=== PATIENT | female | born 1940 | race Caucasian/White ===

== ENCOUNTER 2022-06-04 02:20 | Emergency (ER) | payer MEDICARE, SELFPAY ==
--- NOTE | 2022-06-04 | ECG_ITS ---
Test Reason : cp Blood Pressure : / mmHG Vent. Rate : 071 BPM Atrial Rate : 071 BPM P-R Int : 168 ms QRS Dur : 098 ms QT Int : 396 ms P-R-T Axes : 043 -19 014 degrees QTc Int : 430 ms Normal sinus rhythm Moderate voltage criteria for LVH, may be normal variant ( R in aVL , Lando product ) Intra-ventricular conduction delay Abnormal ECG No previous ECGs available Referred By: Generic ED Physician Electronically Signed By:CHET QUINN MD
--- NOTE | ~2022-06-04 | US_ITS ---
EXAMINATION: US RETROPERITONEAL LIMITED (RENAL ONLY) CLINICAL INFORMATION: Possible mass on recent prior CT. COMPARISON: CT scan from earlier the same day. No prior ultrasound. TECHNIQUE: Real-time imaging of the kidneys. FINDINGS: RIGHT KIDNEY: 10.6 x 5.2 x 5.4 cm (SAG x AP x TRV). Two, 1.0 cm less benign right simple renal cysts. The kidney otherwise appears unremarkable in size, contour, and echogenicity. Renal cortical thickness is normal. No calculi or focal parenchymal lesions. No hydronephrosis. LEFT KIDNEY: 11.4 x 5.1 x 5.9 cm (SAG x AP x TRV). A 2.6 x 2.3 x 1.8 cm, exophytic simple cyst likely corresponds with the exophytic 2.6 lesion off the posterior left kidney identified on CT scan from earlier the same day. It therefore likely represented a benign, hyperdense cyst. Two, additional, 2.6 cm or less benign left simple renal cysts are also identified. The kidney otherwise appears unremarkable in size, contour, and echogenicity. Renal cortical thickness is normal. No calculi appreciated. No hydronephrosis. US/US renal BI IMPRESSION: Benign bilateral simple renal cysts for which no further dedicated follow up imaging is indicated. The exophytic 2.6 lesion off the posterior left kidney identified on CT scan from earlier the same day likely represented a benign, hyperdense cyst.
--- NOTE | ~2022-06-04 | CT_ITS ---
EXAMINATION: CT ABDOMEN AND PELVIS WITHOUT CONTRAST CLINICAL INFORMATION: Left upper quadrant pain COMPARISON: None TECHNIQUE: Multidetector volumetric imaging was performed from the superior aspect of the liver through the pubic symphysis. Sagittal and coronal reformatted images were obtained on the technologist's workstation. This CT examination was performed using dose optimization techniques as appropriate, variously including the following: *Automated exposure control *Adjustment of mA and/or kV according to patient size (this includes techniques or standardized protocols for targeted exams where dose is matched to indication/reason for exam; i.e. extremities or head) *Use of iterative reconstruction technique DLP: 601 mGy-cm FINDINGS: LUNG BASES: The visualized lung bases are unremarkable. LIVER, GALLBLADDER, AND BILIARY TREE: The liver is normal in size, shape, and attenuation. Small hypodensity in the left hepatic lobe favors a cyst. No biliary ductal dilatation is present. The gallbladder is unremarkable with no evidence of radiopaque gallstones, gallbladder wall thickening, or obvious pericholecystic inflammatory changes. PANCREAS: Unremarkable. SPLEEN: Unremarkable. ADRENAL GLANDS: Unremarkable. KIDNEYS AND URETERS: No hydronephrosis or obstructing calculus bilaterally. There is an exophytic 2.6 cm lesion off the posterior left kidney measuring 31 Hounsfield units, not cystic by CT criteria. A couple simple left renal cysts are also suspected. Additional tiny nonspecific lesion noted off the posterior right kidney. BLADDER: Unremarkable. GASTROINTESTINAL TRACT: No evidence of bowel obstruction or significant wall thickening. No free fluid or free air is seen. ABDOMINAL WALL: No significant hernia is appreciated. LYMPH NODES: Normal. VASCULAR: Mild atelectatic calcification. PELVIC VISCERA: Unremarkable. OSSEOUS STRUCTURES: Multilevel degenerative disc disease in the lumbar spine along with facet arthropathy. CT/CT abdomen pelvis wo IV con IMPRESSION: 1. No acute findings identified in the abdomen/pelvis. 2. Exophytic left renal lesion measuring 31 Hounsfield units, not cystic by CT criteria. This may represent a hyperdense cyst, though a solid mass cannot be excluded. Further workup with renal ultrasound is recommended.
[2022-06-04 02:49] VITALS: BP 168/83; PULSE 77; RESP 18; TEMP 36.1; O2SAT 98; BMI 28.9
[2022-06-04 03:04] LABS: MANUAL DIFF FLAG NO
[2022-06-04 03:05] LABS: Basophils Absolute Auto 0.1 X10*3/uL (0.0-0.2); Basophils Percent Auto 0.9 % (0-2); Eosinophils Absolute Auto 0.2 X10*3/uL (0.0-0.4); Eosinophils Percent Auto 3.2 % (0-4); Hematocrit 38.9 % (37.0-47.0); Hemoglobin 12.9 g/dl (12.0-16.0); Imm Gran Abs Auto 0.02 X10*3/uL (0.00-0.03); Imm Gran Pct Auto 0.3 % (0.0-0.4); Lymphocytes Absolute Auto 1.6 X10*3/uL (1.2-4.9); Lymphocytes Percent Auto 21.1 % (20-40); Mean Corpuscular HGB Conc 33.2 g/dl (31.0-35.0); Mean Corpuscular Hemoglobin 30.4 pg (27.0-33.0); Mean Corpuscular Volume 91.5 fL (80.0-98.0); Mean Platelet Volume 9.1 fL (9.4-12.3); Monocytes Absolute Auto 0.7 X10*3/uL (0.1-1.2); Monocytes Percent Auto 9.2 % (2-11); Neutrophils Absolute Auto 4.8 x10*3/uL (2.0-8.3); Neutrophils Percent Auto 65.3 % (45-73); Platelet Count 255 X10*3/uL (160-400); Red Blood Count 4.25 X10*6/uL (4.20-5.50); Red Cell Distribution Width 13.2 % (11.0-16.0); White Blood Count 7.4 X10*3/uL (4.8-10.8)
[2022-06-04 03:35] LABS: Alanine Aminotransferase 22 U/L (0-31); Albumin Level 4.1 g/dL (3.5-5.0); Alkaline Phosphatase 140 U/L (39-117); Anion Gap 15 (12-20); Aspartate Amino Transferase 25 U/L (5-31); Bilirubin Direct 0.2 mg/dL (0.0-0.5); Bilirubin Total 0.6 mg/dL (0.0-1.0); Blood Urea Nitrogen 13 mg/dL (9-16); Calcium 10.3 mg/dL (8.4-10.2); Carbon Dioxide 23 mmol/L (22-29); Chloride 104 mmol/L (96-108); Estimated Glomerular Filt Rate > 60; Glucose Random 115 mg/dL (60-115); Lipase 48 U/L (8-78); Potassium 3.9 mmol/L (3.3-5.1); Sodium 138 mmol/L (135-145); Total Protein 6.8 g/dL (6.5-8.0); Troponin-I High Sensitivity < 3.5 ng/L (<3.5-17.0)
--- NOTE | 2022-06-04 05:36 | PC.NURSE ---
Pt complains of abdomen pain radiating up into chest. Another EKG obtained, continues to be normal sinus rhythm reviewed by .
--- NOTE | 2022-06-04 05:56 | ED_ITS ---
HPI - Abdominal Pain General Chief Complaint: Abdominal Pain Stated Complaint: abd pain Time Seen by Provider: 06/04/22 05:46 Source: patient Mode of arrival: ambulatory Limitations: no limitations History of Present Illness HPI narrative: Patient comes to the emergency room complaining of 2 days of left upper quadrant pain. Patient states that she is nauseous but she has not vomited or had any diarrhea. Patient denies chest pain or shortness of breath. No coughing or URI symptoms. Patient denies UTI symptoms as well prove patient states that the pain is mostly consist of a burning sensation radiating towards her back and upper chest. Patient took a diastasis without any relief. Related Data Allergies Allergy/AdvReac Type Severity Reaction Status Date / Time acetaminophen [From Percocet] AdvReac Hypotension Verified 06/04/22 02:53 oxycodone AdvReac Hypotension Verified 06/04/22 02:53 Review of Systems Review of Systems Constitutional : No Weight loss, No Fever, No Chills, No Night Sweats, No Fatigue, No Malaise ENT/Mouth : No Hearing loss, No Ear Pain, No Nasal Congestion, No Sinus Pain, No Hoarseness, No sore throat, No Rhinorrhea, No Swallowing Difficulty Eyes: No Eye Pain, No Swelling, No Redness, No Foreign Body, No Discharge, No Vision Changes Cardiovascular : No Chest Pain, No SOB, No Dyspnea on Exertion, No Orthopnea, No Edema, No Palpitations Respiratory : No Cough, No Sputum, No Wheezing, No Smoke Exposure, No Dyspnea Gastrointestinal : Complaining of Nausea, No Vomiting, No Diarrhea, No Constipation, complaining of abdominal burning sensation in the left upper quadrant radiating towards the back and up to the chest Genitourinary : no irregular bleeding, No Dysuria, No Urinary Frequency, No Hematuria, No Urinary Incontinence, No Urgency, No Flank Pain, No Urinary Flow Changes, No Hesitancy Musculoskeletal : No joint pain, No Myalgias, No Joint Swelling Skin : No Skin Lesions, No rash Neuro : No Weakness, No Numbness, No Paresthesias, No Loss of Consciousness, No Dizziness, No Headache Psych : No Anxiety/Panic, No Depression, No SI/HI/AH/VH, No Social Issues, Heme/Lymph: No Bruising, No Bleeding,No Lymphadenopathy Endocrine : No Polyuria, No Polydipsia, No Temperature Intolerance [facility] Past Medical History Medical History (Updated 06/04/22 @ 06:53 by Laverne Corral MD) GERD (gastroesophageal reflux disease) Kidney stones Osteoarthritis Small bowel obstruction Social History Social History Alcohol intake: never Smoked in Last 30 Days: No Use of substances other than those prescribed or required for medical reasons: No Advance Directives: No Advance Directives Information Provided: No Physical Exam ED Vital Signs: Vital Signs - 24 hr 06/04/22 02:49 06/04/22 06:13 06/04/22 06:49 Temperature 97.0 F 97.8 F Pulse Rate 77 71 Respiratory Rate 18 18 11 L Blood Pressure 168/83 H 142/76 H Pulse Oximetry 98 98 Oxygen Delivery Method Room Air Room Air BMI result Body Mass Index 28.9 Course Course Course Narrative: White blood cell count within normal limits, chemistry within normal limits through CT scan pending. Patient received IV fluids, famotidine, morphine and Zofran. Sign-out given to Dr. [facility] - Abdominal Pain Lab Data Result diagrams: 06/04/22 02:59 06/04/22 02:59 Labs: Lab Results 06/04/22 06/04/22 06/04/22 Range/Units 02:59 02:59 02:59 WBC 7.4 (4.8-10.8) X10*3/uL RBC 4.25 (4.20-5.50) X10*6/uL Hgb 12.9 (12.0-16.0) g/dl Hct 38.9 (37.0-47.0) % MCV 91.5 (80.0-98.0) fL MCH 30.4 (27.0-33.0) pg MCHC 33.2 (31.0-35.0) g/dl RDW 13.2 (11.0-16.0) % Plt Count 255 (160-400) X10*3/uL MPV 9.1 L (9.4-12.3) fL Immature Gran % (Auto) 0.3 (0.0-0.4) % Neut % (Auto) 65.3 (45-73) % Lymph % (Auto) 21.1 (20-40) % [place] % (Auto) 9.2 (2-11) % Eos % (Auto) 3.2 (0-4) % Baso % (Auto) 0.9 (0-2) % Lymph # (Auto) 1.6 (1.2-4.9) X10*3/uL [place] # (Auto) 0.7 (0.1-1.2) X10*3/uL Eos # (Auto) 0.2 (0.0-0.4) X10*3/uL Baso # (Auto) 0.1 (0.0-0.2) X10*3/uL Abs Immat Gran (auto) 0.02 (0.00-0.03) X10*3/uL Absolute Neuts (auto) 4.8 (2.0-8.3) x10*3/uL Absolute Nucleated RBC 0.000 (0.0-0.012) X10*3/uL Nucleated RBC % (auto) 0.0 (0.0-0.2) /100WBC Sodium 138 (135-145) mmol/L Potassium 3.9 (3.3-5.1) mmol/L Chloride 104 (96-108) mmol/L Carbon Dioxide 23 (22-29) mmol/L Anion Gap 15 (12-20) BUN 13 (9-16) mg/dL Creatinine 0.65 (0.5-1.4) mg/dL Estim Creat Clear Calc 64.0 Estimated GFR > 60 Random Glucose 115 (60-115) mg/dL Calcium 10.3 H (8.4-10.2) mg/dL Total Bilirubin 0.6 (0.0-1.0) mg/dL Direct Bilirubin 0.2 (0.0-0.5) mg/dL AST 25 (5-31) U/L ALT 22 (0-31) U/L Alkaline Phosphatase 140 H (39-117) U/L Troponin I High Sens < 3.5 (<3.5-17.0) ng/L Total Protein 6.8 (6.5-8.0) g/dL Albumin 4.1 (3.5-5.0) g/dL Lipase 48 (8-78) U/L Discharge Plan Discharge Clinical Impression: Abdominal pain Patient Disposition: Still a Patient
[2022-06-04 06:13] VITALS: RESP 18
[2022-06-04] MEDS: Morphine Sulfate 2 MG/ML CARTRIDGE IVPUSH (06:13)
[2022-06-04] MEDS: 0.9 % Sodium Chloride 1,000 ML 999 ML IVCONT (06:14)
[2022-06-04] MEDS: ondansetron HCL 4 MG/2 ML VIAL IVPUSH (06:17)
[2022-06-04] MEDS: Famotidine/PF 20 MG/2 ML VIAL IVPUSH (06:19)
[2022-06-04 06:49] VITALS: BP 142/76; PULSE 71; RESP 11; TEMP 36.6; O2SAT 98
[2022-06-04 07:35] LABS: Appearance Urine Clear; Color Urine Yellow; Glucose Urine UA Negative (Negative); Leukocyte Esterase Urine Trace (Negative); Nitrite Urine Negative (Negative); PH 7.5 (5.0-9.0); Specific Gravity - Urine <= 1.005 (1.005-1.025); UMIC TRIGGER UACC YES; Urine Blood Negative (Negative); Urine Ketones Negative (Negative); Urine Protein Negative (Neg-Trace)
[2022-06-04 07:39] LABS: Bacteria Urine None Seen (None Seen); Hyaline Casts Urine 0-2 /LPF (0-2); RBC Urine 0-2 /HPF (0-2); Squamous Epithelial Cell Urine 0-2 /HPF (0-2); WBC Urine 0-5 /HPF (0-5)
[2022-06-04] MEDS: traMADoL HCL 50 MG TABLET PO (09:16)
--- NOTE | 2022-06-04 09:49 | PC.NURSE ---
Bedside ultrasound complete. Pt medicated for persistent left sided abd to back pain
== END 2022-06-04 10:46 | disposition home or self-care (01) ==
PROVIDERS: Emergency Medicine; Emergency Provider Emergency Medicine; PCP Nurse Practitioner Family
DX: R10.12 Left upper quadrant pain (principal)
CPT/HCPCS: 36415; 74176; 76775; 80053; 81001; 82248; 83690; 84484; 85025; 93005; 96374; 96375; 99284; 99285; J2270; J2405

== ENCOUNTER 2022-06-06 09:44 | Emergency (ER) | payer MEDICARE, SELFPAY ==
--- NOTE | ~2022-06-06 | XR_ITS ---
EXAMINATION: CHEST 2 VIEWS. ABDOMEN CLINICAL INFORMATION: Pain. Pain COMPARISON: None TECHNIQUE: 2 views chest. 2 views abdomen FINDINGS: Chest: Lungs grossly clear. Minimal scarring in the apices. No pleural effusions. Heart and pulmonary vessels normal. ABDOMEN: Moderate stool burden but no bowel obstruction or free air. There is degenerative change in the left SI joint. XR/XR chest 2V IMPRESSION: No acute findings.
--- NOTE | ~2022-06-06 | XR_ITS ---
EXAMINATION: CHEST 2 VIEWS. ABDOMEN CLINICAL INFORMATION: Pain. Pain COMPARISON: None TECHNIQUE: 2 views chest. 2 views abdomen FINDINGS: Chest: Lungs grossly clear. Minimal scarring in the apices. No pleural effusions. Heart and pulmonary vessels normal. ABDOMEN: Moderate stool burden but no bowel obstruction or free air. There is degenerative change in the left SI joint. XR/XR abdomen min 2V IMPRESSION: No acute findings.
[2022-06-06 09:46] VITALS: BP 144/76; PULSE 87; RESP 18; TEMP 36.8; O2SAT 99; BMI 28.7
--- NOTE | 2022-06-06 10:10 | ED.ABDPAIN ---
HPI - Abdominal Pain General Chief Complaint: Abdominal Pain Stated Complaint: ABD PAIN Time Seen by Provider: 06/06/22 10:09 Source: patient Mode of arrival: ambulatory Limitations: no limitations History of Present Illness HPI narrative: patient was here a few days ago and had a CT and an ultrasound that was negative. Patients pain gets worse with eating and now it is back. Patient states that she has not had a BM for a few days. MD elicited complaint: abdominal pain Pertinent past history: constipation Onset (ago): week(s) Pain Consistency: intermittent Location: LUQ Severity: moderate Quality: stabbing Radiation: LUQ Migration to: no migration Exacerbating factors: eating Relieving factors: nothing Associated symptoms: nausea Related Data Previous Rx's Medication Instructions Recorded omeprazole magnesium 10 mg oral 20 mg PO DAILY #30 ea 06/04/22 suspension,delayed release (Prilosec) cephalexin 500 mg capsule 500 mg PO Q6H #20 caps 06/06/22 lactulose 20 gram/30 mL oral 20 g (30 mL) PO BID #1,200 mL 06/06/22 solution Allergies Allergy/AdvReac Type Severity Reaction Status Date / Time acetaminophen [From Percocet] AdvReac Hypotension Verified 06/04/22 02:53 oxycodone AdvReac Hypotension Verified 06/04/22 02:53 Review of Systems Constitutional: Reports no additional constitutional complaints Eyes: Reports no additional eye complaints Denies dizziness Cardiovascular: Reports no additional cardiovascular complaints Respiratory: Reports as per HPI Gastrointestinal: Reports no additional gastrointestinal complaints Genitourinary: Reports no additional female genitourinary complaints Musculoskeletal: Reports no additional musculoskeletal complaints Skin/Breast: Denies rash Reports system reviewed and no additional complaints, except as documented, Denies dizziness and Denies Sensory deficit (Neuro) Psychiatric: Denies anxiety [facility] Past Medical History Medical History GERD (gastroesophageal reflux disease) Kidney stones Osteoarthritis Small bowel obstruction Social History Social History Alcohol intake: never Smoked in Last 30 Days: No Use of substances other than those prescribed or required for medical reasons: No Advance Directives: Yes Advance Directives Information Provided: No Advance Directives on File: No Physical Exam ED Vital Signs: Vital Signs - 24 hr 06/06/22 09:46 06/06/22 14:11 Temperature 98.3 F Pulse Rate 87 79 Respiratory Rate 18 14 Blood Pressure 144/76 H 142/77 H Pulse Oximetry 99 99 Oxygen Delivery Method Room Air Room Air BMI result Body Mass Index 28.7 Const Other: intermittent luq pain General: healthy appearing Nutritional Appearance: average body habitus Orientation/consciousness: oriented to person and patient oriented x3 Limitations: no limitations HENMT Head: Yes normal to inspection Ears: external ears normal General nose exam: Normal external nose present Mouth: Normal oral and palatal mucosa present and oropharynx normal Throat: Yes posterior oropharynx normal Eyes General: appearance normal, both eyes and all related structures Neck Neck: Yes normal visual inspection Chest Chest palpation & inspection: normal inspection of the chest Resp Auscultation: clear to auscultation bilaterally Cardio Jugular venous distension: no JVD Rate: regular rate Rhythm: regular rhythm Heart sounds: S1 normal heart sound present and S2 normal heart sound present GI Inspection: Yes normal to inspection Palpation (GI): Soft to palpation, nontender and No hepatosplenomegaly present Auscultation: normal bowel sounds General: Yes no CVA tenderness Back/Spine/Pelvis Back: no CVA tenderness Skin General skin exam: no rashes or lesions noted Neuro General: oriented to person and patient oriented x3 Cranial nerves: Yes CN's II-XII intact bilaterally Motor exam (neuro): 5/5 motor strength present throughout Sensory Exam: No Sensory deficit (Neuro) Extrem General: Yes normal to inspection Psych Appearance: grossly normal Course Reevaluation(s) Reevaluation #1: xray shows constipation, Urine now shows infection will dc on lactulose and keflex Time: 14:39 Medications Administered Discontinued Medications Generic Name Dose Route Start Last Admin Trade Name Freq PRN Reason Stop Dose Admin Ketorolac Tromethamine 15 mg 06/06/22 10:18 06/06/22 10:57 Ketorolac Tromethamine 15 Mg/Ml Vial IVPUSH 06/06/22 10:19 15 mg ONCE ONE Administration Lactulose 30 gm 06/06/22 13:21 06/06/22 14:13 Lactulose 20 Gm/30 Ml Solution PO 06/06/22 13:22 30 gm ONCE ONE Administration Pantoprazole Sodium 40 mg 06/06/22 10:18 06/06/22 10:58 Pantoprazole Sodium 40 Mg/10 Ml Vial IVPUSH 06/06/22 10:19 40 mg ONCE ONE Administration MDM - Abdominal Pain Lab Data Result diagrams: 06/06/22 10:46 06/06/22 10:46 Labs: Lab Results 06/06/22 06/06/22 06/06/22 Range/Units 10:46 10:46 14:23 WBC 6.9 (4.8-10.8) X10*3/uL RBC 4.13 L (4.20-5.50) X10*6/uL Hgb 12.7 (12.0-16.0) g/dl Hct 37.8 (37.0-47.0) % MCV 91.5 (80.0-98.0) fL MCH 30.8 (27.0-33.0) pg MCHC 33.6 (31.0-35.0) g/dl RDW 13.2 (11.0-16.0) % Plt Count 240 (160-400) X10*3/uL MPV 9.1 L (9.4-12.3) fL Immature Gran % (Auto) 0.1 (0.0-0.4) % Neut % (Auto) 66.9 (45-73) % Lymph % (Auto) 20.8 (20-40) % [place] % (Auto) 9.0 (2-11) % Eos % (Auto) 2.5 (0-4) % Baso % (Auto) 0.7 (0-2) % Lymph # (Auto) 1.4 (1.2-4.9) X10*3/uL [place] # (Auto) 0.6 (0.1-1.2) X10*3/uL Eos # (Auto) 0.2 (0.0-0.4) X10*3/uL Baso # (Auto) 0.1 (0.0-0.2) X10*3/uL Abs Immat Gran (auto) 0.01 (0.00-0.03) X10*3/uL Absolute Neuts (auto) 4.6 (2.0-8.3) x10*3/uL Absolute Nucleated RBC 0.000 (0.0-0.012) X10*3/uL Nucleated RBC % (auto) 0.0 (0.0-0.2) /100WBC Sodium 138 (135-145) mmol/L Potassium 4.1 (3.3-5.1) mmol/L Chloride 103 (96-108) mmol/L Carbon Dioxide 24 (22-29) mmol/L Anion Gap 15 (12-20) BUN 14 (9-16) mg/dL Creatinine 0.67 (0.5-1.4) mg/dL Estim Creat Clear Calc 61.9 Estimated GFR > 60 Random Glucose 93 (60-115) mg/dL Calcium 9.2 D (8.4-10.2) mg/dL Total Bilirubin 0.4 (0.0-1.0) mg/dL AST 33 H (5-31) U/L ALT 31 (0-31) U/L Alkaline Phosphatase 128 H (39-117) U/L Total Protein 6.7 (6.5-8.0) g/dL Albumin 4.0 (3.5-5.0) g/dL Urine Color Yellow Urine Appearance Clear Urine pH 6.0 (5.0-9.0) Ur Specific [place] 1.020 (1.005-1.025) Urine Protein Negative (Neg-Trace) mg/dL Urine Glucose (UA) Negative (Negative) mg/dL Urine Ketones 40 (Negative) mg/dL Urine Blood Small (1+) H (Negative) Urine Nitrite Negative (Negative) Ur Leukocyte Esterase Moderate (2+) H (Negative) Urine RBC 6-10 H (0-2) /HPF Urine WBC 6-10 H (0-5) /HPF Ur Squamous Epith Cells 3-5 (0-2) /HPF Urine Bacteria None Seen (None Seen) Hyaline Casts 0-2 (0-2) /LPF Imaging Data Abdominal x-ray: Radiologist's impression: ABDOMEN: Moderate stool burden but no bowel obstruction or free air. There is degenerative change in the left SI joint.? XR/XR abdomen min 2V IMPRESSION: No acute findings.? Chest x-ray: Radiologist's impression: FINDINGS: Chest: Lungs grossly clear. Minimal scarring in the apices. No pleural effusions. Heart and pulmonary vessels normal. ABDOMEN: Moderate stool burden but no bowel obstruction or free air. There is degenerative change in the left SI joint.? XR/XR chest 2V IMPRESSION: No acute findings.? Discharge Plan Discharge Clinical Impression: Constipation, Urinary tract infection Patient Disposition: Home, Self-Care Instructions: Constipation (ED), Urinary Tract Infection in Older Adults (ED) Prescriptions: New lactulose 20 gram/30 mL solution 20 g PO BID Qty: 1200 0RF cephalexin 500 mg capsule 500 mg PO Q6H Qty: 20 0RF No Action Prilosec 10 mg susp,delayed release for recon 20 mg PO DAILY Qty: 30 0RF Referrals: Radha Lee MACHINIST 2ND SHIFT [Primary Care Provider] - 5 days Interventions: ED Discharge Assessment Last Done: 06/06/22 14:59 Discharge Date/Time: 06/06/22 15:14
[2022-06-06 10:49] LABS: MANUAL DIFF FLAG NO
[2022-06-06 10:52] LABS: Basophils Absolute Auto 0.1 X10*3/uL (0.0-0.2); Basophils Percent Auto 0.7 % (0-2); Eosinophils Absolute Auto 0.2 X10*3/uL (0.0-0.4); Eosinophils Percent Auto 2.5 % (0-4); Hematocrit 37.8 % (37.0-47.0); Hemoglobin 12.7 g/dl (12.0-16.0); Imm Gran Abs Auto 0.01 X10*3/uL (0.00-0.03); Imm Gran Pct Auto 0.1 % (0.0-0.4); Lymphocytes Absolute Auto 1.4 X10*3/uL (1.2-4.9); Lymphocytes Percent Auto 20.8 % (20-40); Mean Corpuscular HGB Conc 33.6 g/dl (31.0-35.0); Mean Corpuscular Hemoglobin 30.8 pg (27.0-33.0); Mean Corpuscular Volume 91.5 fL (80.0-98.0); Mean Platelet Volume 9.1 fL (9.4-12.3); Monocytes Absolute Auto 0.6 X10*3/uL (0.1-1.2); Neutrophils Absolute Auto 4.6 x10*3/uL (2.0-8.3); Neutrophils Percent Auto 66.9 % (45-73); Platelet Count 240 X10*3/uL (160-400); Red Blood Count 4.13 X10*6/uL (4.20-5.50); Red Cell Distribution Width 13.2 % (11.0-16.0); White Blood Count 6.9 X10*3/uL (4.8-10.8)
[2022-06-06] MEDS: Ketorolac Tromethamine 15 MG/ML VIAL IVPUSH (10:57)
[2022-06-06] MEDS: Pantoprazole Sodium 40 MG/10 ML VIAL IVPUSH (10:58)
[2022-06-06 11:14] LABS: Alanine Aminotransferase 31 U/L (0-31); Alkaline Phosphatase 128 U/L (39-117); Anion Gap 15 (12-20); Aspartate Amino Transferase 33 U/L (5-31); Bilirubin Total 0.4 mg/dL (0.0-1.0); Blood Urea Nitrogen 14 mg/dL (9-16); Calcium 9.2 mg/dL (8.4-10.2); Carbon Dioxide 24 mmol/L (22-29); Chloride 103 mmol/L (96-108); Creatinine Clr Calc Pharmacy 61.9; Estimated Glomerular Filt Rate > 60; Glucose Random 93 mg/dL (60-115); Potassium 4.1 mmol/L (3.3-5.1); Sodium 138 mmol/L (135-145); Total Protein 6.7 g/dL (6.5-8.0)
[2022-06-06 14:11] VITALS: BP 142/77; PULSE 79; RESP 14; O2SAT 99
[2022-06-06] MEDS: Lactulose 20 GM/30 ML SOLUTION 30 GM PO (14:13)
[2022-06-06 14:29] LABS: Appearance Urine Clear; Color Urine Yellow; Glucose Urine UA Negative (Negative); Leukocyte Esterase Urine Moderate (2+) (Negative); Nitrite Urine Negative (Negative); UMIC TRIGGER UACC YES; Urine Blood Small (1+) (Negative); Urine Ketones 40 mg/dL (Negative); Urine Protein Negative (Neg-Trace)
[2022-06-06 14:32] LABS: Bacteria Urine None Seen (None Seen); Hyaline Casts Urine 0-2 /LPF (0-2); UACC Culture Trigger YES
== END 2022-06-06 15:14 | disposition home or self-care (01) ==
PROVIDERS: Emergency Provider Emergency Medicine; PCP Nurse Practitioner Family
DX: K59.00 Constipation, unspecified (principal); N39.0 Urinary tract infection, site not specified; R10.9 Unspecified abdominal pain
CPT/HCPCS: 36415; 71046; 74019; 80053; 81001; 85025; 87086; 96374; 96375; 99284; J1885

== ENCOUNTER 2025-07-24 09:47 | Emergency (ER) | payer MEDICARE, SELFPAY ==
--- NOTE | ~2025-07-24 | XR_ITS ---
CLINICAL HISTORY: ?fracture - left foot pain 3 view left foot Comparison: None provided Findings: No acute fracture. Chronic/subacute fracture of the 5th metatarsal bone. First metatarsophalangeal joint prominence. No erosions. Hallux valgus. No ankle effusion. No radiopaque foreign body. IMPRESSION: Subacute/chronic fracture of the 5th metacarpal bone. This document has been electronically signed by: Regine Castillo MD on 07/24/2025 12:42:50
--- NOTE | 2025-07-24 10:04 | ED.GENADULT ---
HPI - General Adult General Chief complaint: Extremity Injury, Lower Stated complaint: broken bone over 2 months ago pain yesterday sever Time Seen by Provider: 07/24/25 09:57 Source: patient and family Mode of arrival: ambulatory Limitations: no limitations History of Present Illness ED Provider: DR. Oliva HPI narrative: 85-year-old female came in for evaluation of left foot pain, denies any injury or trauma to the left foot, 2 months ago, reportedly had a on traumatic broken bone in her left foot that was treated with ortho shoes and required no surgery. otherwise patient has no complaints Related Data Previous Rx's ?Medication ?Instructions ?Recorded omeprazole magnesium 10 mg oral 20 mg PO DAILY #30 ea 06/04/22 suspension,delayed release (Prilosec) cephalexin 500 mg capsule 500 mg PO Q6H #20 caps 06/06/22 lactulose 20 gram/30 mL oral 20 g (30 mL) PO BID #1,200 mL 06/06/22 solution Allergies Allergy/AdvReac Type Severity Reaction Status Date / Time acetaminophen (From Percocet) AdvReac Hypotension Verified 07/24/25 10:07 oxycodone AdvReac Hypotension Verified 07/24/25 10:07 Review of Systems Review of Systems: all other systems are reviewed and are negative Constitutional: Reports as per HPI and Reports no additional constitutional complaints Eyes: Reports as per HPI and Reports no additional eye complaints Reports system reviewed and no additional complaints, except as documented Cardiovascular: Reports as per HPI and Reports no additional cardiovascular complaints Respiratory: Reports as per HPI and Reports no additional respiratory complaints Gastrointestinal: Reports as per HPI and Reports no additional gastrointestinal complaints Genitourinary: Reports no additional female genitourinary complaints Musculoskeletal: Reports no additional musculoskeletal complaints Skin/Breast: Reports system reviewed and no additional complaints, except as docu Psychiatric: Reports no additional psychiatric complaints Endocrine: Reports no additional endocrine complaints Hematologic/Lymphatic: Reports no additional hematologic/lymphatic complaints Allergic/Immunologic: Reports no additional allergic/immunologic complaints Reports system reviewed and no additional complaints, except as documented and Reports Abnormal speech present [facility] Past Medical History Medical History Osteoarthritis Small bowel obstruction Kidney stones GERD (gastroesophageal reflux disease) Social History Social History Alcohol intake: never Advance Directives: Yes Advance Directives Information Provided: No Advance Directives on File: No Physical Exam ED Vital Signs: Vital Signs - 24 hr 07/24/25 10:06 Temperature 97.9 F Pulse Rate 85 Respiratory Rate 16 Blood Pressure 122/67 Pulse Oximetry 97 Oxygen Delivery Method Room Air BMI result Body Mass Index 26.6 Vital signs have been reviewed and appear to be correct. Blood pressure elevated. Heart rate normal. Respiratory rate normal. Temperature normal. Oxygen saturation normal. Appearance: Alert. Oriented X3. No acute distress. Head: Normal external exam. Normocephalic. Atraumatic. No Gaming signs noted. No raccoon eyes noted Eyes: PERRLA. EOMI. Conjunctiva and sclera normal. Eyelids normal. ENT: TM's Normal. Pharynx normal. Uvula midline. Moist mucous membranes. No trismus noted. No drooling noted. No muffled voice noted. Neck: Normal inspection. Neck supple. FROM. No adenopathy. Thyroid Normal. No meningeal signs. No neck mass noted. CVS: Normal heart rate and rhythm. Heart sound normal. No murmurs noted. Pulses normal throughout. Respiratory: No respiratory distress. Painless inspiration. Breath sounds normal. No wheezes/rales/rhonchi noted. Chest nontender. No accessory muscle usage noted or decreased air movement noted. Abdomen: Soft and nontender. Bowel sounds normal in all 4 quadrants. No distention noted. No organomegaly noted. No visible injury noted. Back: No CVA tenderness. Full range of motion noted. Skin: Skin warm and dry. Normal skin color. Normal skin turgor. No rashes/lesions/lacerations noted. Extremities: No lower extremity edema. Extremities exhibit normal range of motion. Extremities nontender. Neuro: Oriented X 3. Cranial nerve exam: II-XII are grossly intact No motor deficit. No sensory deficit. Reflexes normal. Course Reevaluation(s) Reevaluation #1: Subacute/chronic fracture of the left 5th metatarsal bone, patient already is wearing an ortho shoe. Patient is okay with Excedrin to control her pain, will refer to our orthopedic clinic. Time: 12:59 Medications Administered Discontinued Medications Generic Name Dose Route Start Last Admin Trade Name Freq PRN Reason Stop Dose Admin Acetaminophen 650 mg 07/24/25 11:02 07/24/25 11:10 Acetaminophen 325 Mg Tablet PO 07/24/25 11:03 650 mg ONCE ONE Administration Medical Decision Making Differential Diagnosis Differential Diagnoses: The differential diagnosis associated with the presentation includes ( Left foot fracture, left foot sprain.) Admission/Observation Consideration of admission/observation: Escalation of care including admission/observation considered Independent Interpretation I performed an independent interpretation of an: Plain X-Ray ( Left foot x-ray: Subacute/chronic left 5th metatarsal bone fracture) Radiology Impression Discussion of test interpretation with radiology: I have reviewed the radiologist's reading. Discharge Plan Discharge Clinical Impression: Closed nondisplaced fracture of fifth left metatarsal bone Patient Disposition: Home, Self-Care Instructions: Foot Fracture in Adults (ED) Additional Instructions: wear the ortho shoe at all times, avoid strenuous activity, avoid running, walking, Or climbing stairs. Prescriptions: No Action Prilosec 10 mg susp,delayed release for recon 20 mg PO DAILY Qty: 30 0RF lactulose 20 gram/30 mL solution 20 g PO BID Qty: 1200 0RF cephalexin 500 mg capsule 500 mg PO Q6H Qty: 20 0RF Referrals: Pardeep Redmond MD [Physician, Orthopedics] Print Language: Mosotho
[2025-07-24 10:06] VITALS: BP 122/67; PULSE 85; RESP 16; TEMP 36.6; O2SAT 97; BMI 26.6
--- OUTSIDE RECORDS SUMMARY | 2025-07-24 10:54 | XMS_ITS | Encounter Summary ---
Author Organization [facility] Address [address] [place] [phone] Phone Care Team Providers Care Case Management Rn Name Role Phone Radha Lee OUTSIDE SALES ACCOUNT EXECUTIVE Primary Care Provider Radha Lee OUTSIDE SALES ACCOUNT EXECUTIVE Primary Care Provider Kitty Liang MD, MPH Primary Care Provider + Encounter Details Date Type Department Care Team (Late st Contact Info) Description 04/01/2020 Procedure Pass [facility], [address] [address] Social History Tobacco Use Types Packs/Day Years Used Date Smoking Tobacco: Never Smokeless Tobacco: Never Alcohol Use Standard Drinks/Week Comments Yes 0 (1 standard drink = 0.6 oz pur e alcohol) 1 glass 5 days a week. Comments Unknown Sex and Gender Information Value Date Recorded Sex Assigned at Female 09/20/2019 4:52 PM EST Legal Sex Female 10:11 PM EDT Gender Identity Female 09/20/2019 4:52 PM EST Sexual Orientation Not on file documented as of this encounter Plan of Treatment Not on file documented as of this encounter Visit Diagnoses Not on filedocumented in this encounter Care Teams Case Management Rn Relationship Specialty Start Date End Date Radha Lee NP [address] [place] [address] [email or web address] PCP - General Family Medicine 02/26/19 02/23/22 Radha Lee NP [address] [place] [address] [email or web address] PCP - General Family Medicine 02/24/22 12/26/23 Kitty Liang MD, MPH [address] [place] [phone] [email or web address] PCP - General Family Medicine 12/27/23 documented as of this encounter Additional Source Comments The information contained in this document represents components of the legal health record. It is not the complete legal health record.[facility]
--- OUTSIDE RECORDS SUMMARY | 2025-07-24 10:54 | XMS_ITS | Clinical Summary ---
Author Organization [facility] Address [address] [address] Phone Care Team Providers Care Chief Of Anesthesiology Name Role Phone Kitty Liang MD, MPH Primary Care Provider + Allergies Active Allergy Reactions Criticality Noted Date Comments Adhesive Tape-Silicones Rash Low 03/20/2019 Paper tape Duloxetine Dizziness 04/12/2019 fatigue Flu Vaccine [id number](6mos Up) Fever 09/10 Triclosan Rash Low 03/20/2019 Opioids-Meperidine And Related Hypotension 03/01 Medications coenzyme Q10 100 mg capsule Take 100 mg by mouth daily. Active metoprolol tartrate (LOPRESSOR) 25 MG tablet Take 25 mg by mouth 2 (two) times a day. Active therapeutic multivitamin tablet Take 1 tablet by mouth daily. Active cholecalciferol (VITAMIN D3) 2,000 unit tablet Take 2,000 Units by mouth daily. Active polyethylene glycol (MIRALAX) 17 gram/dose powder Take 17 g by mouth daily. Active Active Problems Problem Noted Date Diagnosed Date Abnormal chest x-ray 09/10/2024 Overview (09/10/2024): May 2024 with questionable interstitial changes Assessment & Plan (09/10/2024 11:41 AM EST): Patient presented in the fall with acute respiratory illness, likely bronchitis versus pneumonia requiring 2 courses of antibiotics and prednisone. Chest x-ray at that time read with possible interstitial lung disease. A follow-up chest CT after resolution of illness performed which on personal review reveals no evidence of interstitial lung changes including indirect findings such as bronchiolectasis or bronchiectasis. There are stable biapical pleural thickening and right apical nodules without significant change. Report of recent chest CT. no evidence of generalized interstitial lung disease with persistent and unchanged biapical scarring. No further workup necessary. Osteoarthritis 03/25/2022 Cellulitis of right lower extremity 03/25/2022 Assessment & Plan (03/31/2022 2:51 PM EDT): Improving over hospital stay. continue on vancomycin \ Discharge tomorrow? 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 Assessment & Plan (09/24/2020 10:44 AM EST): Continue acupuncture and physical therapy strengthening exercises. Neuropathy 03/11/2020 Assessment & Plan (09/24/2020 10:44 AM EST): Patient will continue Acupuncture for neuropathy pain relief. Myalgia, other site 12/19/2019 Sciatica of right side 12/11/2019 Primary osteoarthritis involving multiple joints 04/12/2019 Assessment & Plan (01/26/2021 2:06 PM EDT): Joint injection Joint injection site was identified. Injection site was swabbed with alcohol. Local anesthesia was obtained with ethyl chloride spray. Right medial midline knee was injected with 20 mg Depo medrol and 1/2 ml of 1% Lidocaine. Hemostasis was obtained with pressure. A bandage was applied. Post injection care was discussed with the patient. Post injection activity was discussed with the patient. [facility] # [id number] [facility] # [id number] Lot # [id number] Exp. 08/21 Patient will continue Acupuncture and Physical therapy stretching, strengthening exercises for OA pain relief. Assessment & Plan (09/24/2020 10:43 AM EST): Continue physical therapy exercises, and acupuncture for joint pain relief. She states therapies have helped decreased symptoms by 80 %. Primary osteoarthritis of left knee 03/20/2019 Polyarthralgia 03/20/2019 Vitamin D deficiency 03/20/2019 Assessment & Plan (05/27/2021 9:04 AM EDT): Hx of Vit D deficiency currently taking OTC supplementation which she was encouraged to continue Last bone density was approximately 2 yrs ago Pt will f/u with her PCP for follow up dexa Assessment & Plan (01/26/2021 2:03 PM EDT): Patient will continue Vitamin D 2000 IU daily. Assessment & Plan (09/24/2020 10:42 AM EST): Patient will continue Vitamin D 2000 IU daily for Vitamin D deficiency. Supraventricular tachycardia 07/31/1986 Assessment & Plan (03/31/2022 2:50 PM EDT): Denies any history of palpitations or rapid heart rate. History of rare SVT, receiving home dose of metoprolol. Encounters Date Type Department Care Team Description 06/30/2025 8:00 AM EST Office Visit [facility] [address] [place] [phone] Kia Mosquera PA-C Closed nondisplaced fracture of fifth metatarsal bone of left foot with routine healing, subsequent encounter (Primary Dx) 06/30/2025 7:50 AM EST - 06/30/2025 11:59 PM EST Hospital Encounter [address] [address] Kia Mosquera PA-C Discharge Disposition: Home or Self Care 05/26/2025 12:40 PM EDT Office Visit [facility] [address] [place] [phone] Ludwig Javier PA-C Closed nondisplaced fracture of fifth metatarsal bone of left foot, initial encounter (Primary Dx) 05/26/2025 Orders Only [facility] [address] [place] [phone] Provider, MD Denny from Last 3 Months Family History Medical History Relation Comments Coronary artery disease Father Nephrolithiasis Maternal Grandmother Osteoarthritis Mother Tuberculosis Mother Relation Status Comments Father Maternal Grandfather Maternal Grandmother Mother Paternal Grandfather Paternal Grandmother Social History Tobacco Use Types Packs/Day Years Used Date Smoking Tobacco: Never Smokeless Tobacco: Never Alcohol Use Standard Drinks/Week Comments Yes 0 (1 standard drink = 0.6 oz pure alcohol) 1 glass of wine 5 days a week with dinner, or gin and tonic in summertime Education Answer Date Recorded Are you interested in more education? Not on vicente e 11/25/2022 Are you concerned about learning? Not on file 11/25/2022 No 11/25/2022 No 11/25/2022 Digital Access Answer Date Recorded No 12/24/2022 No 12/24/2022 Reliable internet access at home? Not on file 12/24/2022 Device with a working camera? Not on file Comments Unknown Sex and Gender Information Value Date Recorded Sex Assigned at Female 09/20/2019 4:52 PM EST Legal Sex Female 10:11 PM EDT Gender Identity Female 09/20/2019 4:52 PM EST Sexual Orientation Not on file Occupation Industry Job Start Date Job End Date Retired RN Not on file Not on file Not on file Last Filed Vital Signs Vital Sign Reading Time Taken Comments Blood Pressure 122/70 09/10/2024 9:50 AM EST Pulse 64 09/10/2024 9:50 AM EST Temperature 36.3 C (97.3 F) 09/10/2024 9:50 AM EST Respiratory Rate 18 06/02/2024 11:41 AM EST Oxygen Saturation 100% 09/10/2024 9:50 AM EST Inhaled Oxygen Concentration - - Weight 72.6 kg (160 lb) 09/10/2024 9:50 AM EST Height 160 cm (5' 3 ) 09/10/2024 9:50 AM EST Body Mass Index 28.34 09/10/2024 9:50 AM EST Plan of Treatment Health Maintenance Due Date Last Done Comments DEPRESSION SCREENING 1954 ZOSTER VACCINES (1 of 2) 01/15/1992 OSTEOPOROSIS SCREENING INITIAL (ONE-TIME) 2007 PNEUMOCOCCAL VACCINES (50+ years) (2 of 2 - PCV) 07/20/2008 07/20/2007 RSV VACCINE (1 - 1-dose 75+ series) 2017 INFLUENZA VACCINE (#1) 2025 06/21/2010, 2006 COVID-19 VACCINE ( season) 2025 Adult Td,Tdap Booster 11/11/2031 11/10/2021 , 11/03/2011, 11/03/2011, Additional history exists HEPATITIS A VACCINES Aged Out No long er eligible based on patient's age to complete this topic HIB VACCINES Aged Out No longer eligi ble based on patient's age to complete this topic MENINGOCOCCAL VACCINES (ACWY) Aged Out No longer eligible based on patient's age to complete this topic MENINGOCOCCAL VACCINES (B) Aged Out N o longer eligible based on patient's age to complete this topic Medical Devices Not on file Procedures Procedure Name Priority Date/Time Associated Diagnosis Comments XR FOOT 3 OR MORE VIEWS (LEFT) Routine 06/30/2025 7:58 AM EST Closed nondisplaced fracture of fifth metatarsal bone of left foot with routine healing, subsequent encounter OUTSIDE XR EXTREMITY LOWER REPORT ONLY Routine 05/26/2025 10:56 AM EDT from Last 3 Months Results * XR FOOT 3 OR MORE VIEWS (LEFT) (06/30/2025 7:58 AM EST) Narrative SYSTEMGENERATED, DOCUMENTATION - 06/30/2025 7:58 AM EST This image report has been auto-finalized and has not been read by a Radiologist. Interpretation has been included in the provider encounter note for this date of service. Kia Mosquera PA-C IMG XR LOWER EXTREMITY F inal Result * Outside XR Extremity Lower Report Only (05/26/2025 10:56 AM EDT) Historical Provider IMValdemar XR LOWER EXTREMITY Fi nal Result from Last 3 Months Insurance [place] [id number] [employer] CROSS MEDEX SUPPLEMENT MEDICARE PART A & B Member Subscriber Plan / Payer (Ef fective 2006-Present) Name:Divine Marin Member ID:[id number] Relation to Subscriber:Self Name:Divine Marin Subscriber ID:[id number] Payer ID:[id number] Group ID:Not on file Type:Medicare Address: [employer] [address] [address] [facility] MEDEX SUPPLEMENT MEDICARE PART A & B Member Subscriber Plan / Payer (Ef fective 2006-Present) Name:NatachaCorneliaman Divine Member ID:[id number] Relation to Subscriber:Self Name:Divine Marin Subscriber ID:[id number] Payer ID:[id number] Group ID:Not on file Type:Medicare Address: [employer] [address] [place] [address] [employer] MEDEX SUPPLEMENT MEDICARE PART A & B [employer] MEDEX SUPPLEMENT MEDICARE PART A & B Member Subscriber Plan / Payer (Ef fective 2006-Present) Name:Divine Marin Member ID:[id number] Relation to Subscriber:Self Name:Divine Marin Subscriber ID:[id number] Payer ID:[id number] Group ID:Not on file Type:Medicare Address: [employer] [address] [place] [phone] [employer] MEDEX SUPPLEMENT MEDICARE PART A & B Member Subscriber Plan / Payer (Ef fective 2006-Present) Name:NatachaColleen Divine Member ID:[id number] Relation to Subscriber:Self Name:Divine Marin Subscriber ID:[id number] Payer ID:[id number] Group ID:Not on file Type:Medicare Address: [employer] [address] [place] [address] [employer] MEDEX SUPPLEMENT MEDICARE PART A & B [facility] MEDEX SUPPLEMENT MEDICARE PART A & B [employer] MEDEX SUPPLEMENT MEDICARE PART A & B [employer] MEDEX SUPPLEMENT Advance Directives For more information, please contact: [phone] (9AM - 5PM [facility], Monday-Monday) * Full Code (Latest Code Status on File) Date Activated Date Inactivated Comments 03/25/2022 3:16 PM Question Answer Comments Code Status Confirmed With: PatientFamily Care Teams Chief Of Anesthesiology Relationship Specialty Start Date End Date Kitty Liang MD, MPH [address] [place] [phone] [email or web address] PCP - General Family Medicine 12/27/23 Additional Source Comments The information contained in this document represents components of the legal health record. It is not the complete legal health record.[facility]
--- OUTSIDE RECORDS SUMMARY | 2025-07-24 10:54 | XMS_ITS | Encounter Summary ---
Author Organization [facility] Address [address] [place] [phone] Phone Care Team Providers Care Space Systems Operations Craftsman Name Role Phone Radha Lee NP Primary Care Provider Kitty Liang MD, MPH Primary Care Provider + Encounter Details Date Type Department Care Team (Late st Contact Info) Description 12/04/2023 Procedure Pass [facility], [address] [phone] Social History Tobacco Use Types Packs/Day Years [...] file Not on file Not on file documented as of this encounter Plan of Treatment Not on file documented as of this encounter Visit Diagnoses Not on filedocumented in this encounter Care Teams Space Systems Operations Craftsman Relationship Specialty Start Date End Date Radha Lee BUSINESS ACCOUNT MANAGER [address] [place] [address] [email or web address] PCP - General Family Medicine 02/24/22 12/26/23 Kitty Liang MD, MPH [address] [place] [address] [email or web address] PCP - General Family Medicine 12/27/23 documented as of this encounter Additional Source Comments The information contained in this document represents components of the legal health record. It is not the complete legal health record.[facility]
--- OUTSIDE RECORDS SUMMARY | 2025-07-24 10:54 | XMS_ITS | Encounter Summary ---
Author Organization [facility] Address [address] [place] [phone] Phone Care Team Providers Care Icicle Machine Operator Name Role Phone Radha Lee BICYCLE SUBASSEMBLER Primary Care Provider Radha Lee BICYCLE SUBASSEMBLER Primary Care Provider Kitty Liang MD, MPH Primary Care Provider + Encounter Details Date Type Department Care Team (Late st Contact Info) Description 10/22/2019 Procedure Pass [facility] Admitting Dept Virtual Department [address] [place], [place] [phone] Social History Tobacco Use Types Packs/Day Years [...] on filedocumented in this encounter Care Teams Icicle Machine Operator Relationship Specialty Start Date End Date Radha Lee NP [address] [place] [address] [email or web address] PCP - General Family Medicine 02/26/19 02/23/22 Radha Lee NP [address] [place] [address] [email or web address] PCP - General Family Medicine 02/24/22 12/26/23 Kitty Liang MD, MPH [address] [place] [phone] [email or web address] PCP - General Family Medicine 12/27/23 documented as of this encounter Additional Source Comments The information contained in this document represents components of the legal health record. It is not the complete legal health record.[facility]
--- OUTSIDE RECORDS SUMMARY | 2025-07-24 10:54 | XMS_ITS | Encounter Summary ---
Author Organization [facility] Address [address] [place] [address] [place] [address] Phone Care Team Providers Care Admissions Evaluator Name Role Phone Radha Lee NP Primary Care Provider Kitty Liang MD, MPH Primary Care Provider + Encounter Details Date Type Department Care Team (Late st Contact Info) Description 12/07/2023 Ancillary Orders [facility], X-Ray - Autumn [address], [place] [id number] Gustabo Kwok, DO [address] [place] [address] [email or web address] Right shoulder pain, unspecified chronicity (Primary Dx) Social History Tobacco Use Types Packs/Day Years [...] on file documented as of this encounter Results * XR SHOULDER 2 VIEWS (RIGHT) (12/07/2023 1:05 PM EDT) Anatomical Region Laterality Modality Shoulder Right Computed Radiogr aphy 12/10/2023 12:1 9 AM EDT Impressions 12/10/2023 12:20 AM EDT No acute fracture or dislocation. Mild glenohumeral joint degenerative change. Partially visualized cervical spine degenerative change. Narrative 12/10/2023 12:20 AM EDT XR SHOULDER 2 OR MORE VIEWS (RIGHT) REQUESTED INDICATION: Pain COMPARISON: None FINDINGS: BONE: Bones demineralized. No acute fracture or dislocation. GLENOHUMERAL JOINT: Mild joint space narrowing. ACROMIOCLAVICULAR JOINT: Joint spaces preserved. OTHER: Partially visualized cervical spine degenerative change. Procedure Note Bethany Caballero MD - 12/10/2023 XR SHOULDER 2 OR MORE VIEWS (RIGHT) REQUESTED INDICATION: Pain COMPARISON: None FINDINGS: BONE: Bones demineralized. No acute fracture or dislocation. GLENOHUMERAL JOINT: Mild joint space narrowing. ACROMIOCLAVICULAR JOINT: Joint spaces preserved. OTHER: Partially visualized cervical spine degenerative change. IMPRESSION: No acute fracture or dislocation. Mild glenohumeral joint degenerative change. Partially visualized cervical spine degenerative change. Gustabo Kwok DO IMG XR UPPER EXTREMITY Final Result documented in this encounter Visit Diagnoses Diagnosis Right shoulder pain, unspecified chronicity- Primary Right shoulder pain, unspecified chronicity documented in this encounter Care Teams Admissions Evaluator Relationship Specialty Start Date End Date Radha Lee, FLOORING MACHINE FEEDER [address] [place] [address] [email or web address] PCP - General Family Medicine 02/24/22 12/26/23 Kitty Liang MD, MPH [address] [place] [address] [email or web address] PCP - General Family Medicine 12/27/23 documented as of this encounter Additional Source Comments The information contained in this document represents components of the legal health record. It is not the complete legal health record.[facility]
--- OUTSIDE RECORDS SUMMARY | 2025-07-24 10:54 | XMS_ITS | Patient Health Record ---
Author Organization [facility] Address [address] [place] [address] Care Team Providers Care Industrial Ecologist Name Role Phone Radha Lee Primary Care Provider Michael Monae Unavailable [phone] Allergies Allergen (clinical drug ingredient) Drug/Non Drug Allergy documented on EMR Reaction Allergy Type Onset Date Status ANTIBACTERAL SOAP, PAPER TAPE (uncoded) Unknown Allergy Active acetaminophen / oxycodone Percocet Unknown Drug Allergy Active Percodan Unknown Drug Allergy Active Reason For Referral No Information Medications Medication SIG (Take, Route, Frequency, Duration) Notes Start Date End Date Status Multivitamin Adults - Tablet as directed Orally Active Vitamin D 50 MCG (1999) Tablet 1 tablet Orally Once a day; Duration: 30 day(s) Active CoQ-10 100 MG Capsule Extended Release 1 capsule with a meal Orally Once a day; Duration: 30 day(s) Active Metoprolol Succinate 25 MG Capsule ER 24 Hour Sprinkle 1 capsule Orally twice a day Active Linzess 145 MCG Capsule TAKE ONE CAPSULE BY MOUTH EVERY DAY AT LEAST 30 MINUTES BEFORE THE FIRST MEAL OF THE DAY ON AN EMPTY STOMACH; Duration: 30 Active MiraLax - Powder as directed Orally Active Immunizations Vaccine Route Administration Date Status Comme nts Influenza Unknown 10/17/2019 Refused Social History Tobacco Use: Social History Observation Description Date Details (start date - stop date) Never Smoker NA - NA Social History Drugs/Alcohol: Social Info Question Answer Notes Alcohol Screen Did you have a drink containing alcohol in the past year? Yes How often did you have a drink containing alcohol in the past year? 4 or more times a week (4 points) How many drinks did you have on a typical day when you were drinking in the past year? 1 or 2 drinks (0 point) How often did you have 6 or more drinks on one occasion in the past year? Never (0 point) Points 4 Interpretation Positive Tobacco Use: Social Info Question Answer Notes Tobacco Use/Smoking Patient is a nonsmoker Additional Details Category Social Info Options Details Miscellaneous: Marital status: Occupation: retired RN Section Notes: Drinks 1 glass of wine with dinner, nonsmoker Drinks 1 glass of wine with dinner, nonsmoker Problems Problem Type SNOMED Code ICD Code Onset Dates Problem Status W/U Status Risk Notes Problem History of adenomatous polyp of colon (334955553) History of adenomatous polyp of colon (Z86.010) Active confirmed Problem Change in bowel habit (20301109) Change in bowel habits (R19.4) Active confirmed Problem Constipation (75174427) Constipation, unspecified constipation type (K59.00) Active confirmed Problem Generalized abdominal pain (897683349) Abdominal pain, generalized (R10.84) Active confirmed Plan Of Treatment Future Test Test Name Order Date COLONOSCOPY 10/17/2019 Insurance Providers Payer Name Payer Address Payer Phone Subscriber Number Group Number Insured Name Patient Relationship to Insured Coverage Start Date Coverage End Date MEDICARE OF [place] [address] [place] [address] [phone] [id number] NIKO OSORIO Self - patient is the insured [employer] CLAIMS [address] [place] [address] [phone] [id number] NIKO OSORIO Self - patient is the insured Medical (General) History Medical History History ICD Code Kidney stones Supraventricular tachycardia Reports neg colonoscopy [address] Babcock, but couldn't reach cecum Denies AL,DM,CVA,Lung disease,renal dise ase sciatica L-3,L-4-L-5 degenerative arthritis Colonoscopy in 09/2019 with omayra still of a single tubular adenoma. She was also noted to have some mild diverticulosis and internal hemorrhoids Surgical History Surgery Date(Month/Year)
--- OUTSIDE RECORDS SUMMARY | 2025-07-24 10:54 | XMS_ITS | Encounter Summary ---
Author Organization [facility] Address [address] [place] [address] Phone Care Team Providers Care Insurance Claim Approver Name Role Phone Radha Lee NP Primary Care Provider Kitty Liang MD, MPH Primary Care Provider + Reason for Referral * MRI/CAT Scan - Closed Specialty Diagnoses / Procedures Referred By Contac t Referred To Contact Radiology Diagnoses Radiculopathy, unspecified spinal region Procedures MRI Lumbar Spine Gustabo Kwok DO Phone: tel: fax: mailto:[email or web address] Referral ID Status Reason Start Date Expiration Date Visits Re quested Visits Authorized [id number] Closed 12/04/2023 12/03/2024 1 1 Encounter Details Date Type Department Care Team (Latest Contact Info) Description 12/04/2023 Transcribe Orders Virtual Department [address] [place] [address] Gustabo Kwok DO [address] [place] [address] [email or web address] Radiculopathy, unspecified spinal region (Primary Dx) Social History Tobacco Use Types [...] documented as of this encounter Results * MRI LUMBAR SPINE (NEURO) WITHOUT CONTRAST (01/07/2024 2:21 PM EDT) Anatomical Region Laterality Modality L-spine Magnetic Resonan ce 01/10/2024 11:1 7 AM EDT Impressions 01/10/2024 4:46 PM EDT When compared to 2019: Slightly progressed multilevel spinal canal stenoses, severe at L5-S1, moderate to severe at L3-4 and L4-5, and mild to moderate at L2-3. Similar multilevel neuroforaminal stenoses, mild to moderate left at L2-3 and L4-5 and mild at L3-4 and L5-S1. L4-5 facet bone marrow and surrounding soft tissue edema, may reflect an axial pain generator. Narrative 01/10/2024 4:46 PM EDT MRI LUMBAR SPINE (NEURO) WITHOUT CONTRAST REQUESTED INDICATION: Outside Radiology Order TECHNIQUE: MRI LUMBAR SPINE (NEURO) WITHOUT CONTRAST COMPARISON: None FINDINGS: ALIGNMENT: 4 mm L3-4 anterolisthesis. 6 mm L4-5 anterolisthesis. MARROW: Transitional lumbosacral anatomy with lumbarization of S1. Heterogeneous marrow signal without marrow replacing lesion. No compression fracture. DISCS: Disc desiccation L2-S1. Endplate marrow edema at L2-3 and L5-S1. CONUS: Normal appearance and terminates at L1-L2. PARASPINAL SOFT TISSUES: Moderate to severe posterior paraspinal muscle atrophy. L4-5 facet bone marrow and surrounding soft tissue edema. FINDINGS BY LEVEL: T12-L1:Facet arthropathy. No spinal canal or neuroforaminal stenosis. L1-2: Diffuse disc bulge, facet arthropathy, and thickening of ligamentum flavum. No spinal canal or neuroforaminal stenosis. L2-3: Diffuse disc bulge eccentric to the left, facet arthropathy, and thickening of ligamentum flavum. Mild to moderate spinal canal stenosis. Mild to moderate left and no right neuroforaminal stenosis. L3-4: Diffuse disc bulge, disc uncovering, facet arthropathy, and thickening of ligamentum flavum. Moderate to severe spinal canal stenosis (5 mm thecal sac AP). Mild neuroforaminal stenosis. L4-5: Diffuse disc bulge eccentric to the left, facet arthropathy, and thickening of ligamentum flavum. Moderate to severe spinal canal stenosis. Mild to moderate left and no right neuroforaminal stenosis. L5-S1: Diffuse disc bulge, facet arthropathy, and thickening of ligamentum flavum. Severe spinal canal stenosis. Mild neuroforaminal stenosis. Procedure Note Bethany Caballero MD - 01/10/2024 MRI LUMBAR SPINE (NEURO) WITHOUT CONTRAST REQUESTED INDICATION: Outside Radiology Order TECHNIQUE: MRI LUMBAR SPINE (NEURO) WITHOUT CONTRAST COMPARISON: None FINDINGS: ALIGNMENT: 4 mm L3-4 anterolisthesis. 6 mm L4-5 anterolisthesis. MARROW: Transitional lumbosacral anatomy with lumbarization of S1.Heterogeneous marrow signal without marrow replacing lesion. Nocompression fracture. DISCS: Disc desiccation L2-S1. Endplate marrow edema at L2-3 and L5-S1. CONUS: Normal appearance and terminates at L1-L2. PARASPINAL SOFT TISSUES: Moderate to severe posterior paraspinal muscleatrophy. L4-5 facet bone marrow and surrounding soft tissue edema. FINDINGS BY LEVEL: T12-L1:Facet arthropathy. No spinal canal or neuroforaminal stenosis. L1-2: Diffuse disc bulge, facet arthropathy, and thickening of ligamentumflavum. No spinal canal or neuroforaminal stenosis. L2-3: Diffuse disc bulge eccentric to the left, facet arthropathy, andthickening of ligamentum flavum. Mild to moderate spinal canal stenosis.Mild to moderate left and no right neuroforaminal stenosis. L3-4: Diffuse disc bulge, disc uncovering, facet arthropathy, andthickening of ligamentum flavum. Moderate to severe spinal canal stenosis(5 mm thecal sac AP). Mild neuroforaminal stenosis. L4-5: Diffuse disc bulge eccentric to the left, facet arthropathy, andthickening of ligamentum flavum. Moderate to severe spinal canal stenosis.Mild to moderate left and no right neuroforaminal stenosis. L5-S1: Diffuse disc bulge, facet arthropathy, and thickening of ligamentumflavum. Severe spinal canal stenosis. Mild neuroforaminal stenosis. IMPRESSION: When compared to 2020: Slightly progressed multilevel spinal canal stenoses, severe at L5-S1,moderate to severe at L3-4 and L4-5, and mild to moderate at L2-3. Similar multilevel neuroforaminal stenoses, mild to moderate left at L2-3and L4- 5 and mild at L3-4 and L5-S1. L4-5 facet bone marrow and surrounding soft tissue edema, may reflect anaxial pain generator. Gustabo Kwok DO IMG MR XSPECIALTY Final Resu lt documented in this encounter Visit Diagnoses Diagnosis Radiculopathy, unspecified spinal region- Primary Radiculopathy, unspecified spinal region documented in this encounter Care Teams Insurance Claim Approver Relationship Specialty Start Date End Date Radha Lee NP [address] [place] [address] [email or web address] PCP - General Family Medicine 02/24/22 12/26/23 Kitty Liang MD, MPH [address] [place] [address] [email or web address] PCP - General Family Medicine 12/27/23 documented as of this encounter Additional Source Comments The information contained in this document represents components of the legal health record. It is not the complete legal health record.[facility]
[2025-07-24 13:27] VITALS: BP 122/67; PULSE 85; RESP 16; TEMP 36.6; O2SAT 97
== END 2025-07-24 13:27 | disposition home or self-care (01) ==
PROVIDERS: Emergency Provider Emergency Medicine; PCP Family Medicine
DX: S92.352A Displaced fracture of fifth metatarsal bone, left foot, initial encounter for closed fracture (principal); M79.672 Pain in left foot; X58.XXXA Exposure to other specified factors, initial encounter; Y93.9 Activity, unspecified; Y92.9 Unspecified place or not applicable; Y99.8 Other external cause status
CPT/HCPCS: 73630; 99283

== ENCOUNTER 2025-07-29 09:59 | Outpatient (AMB) | payer MEDICARE, SELFPAY ==
--- NOTE | 2025-07-29 10:08 | A.OFFVIS_ITS ---
Vital Signs 07/29/25 10:10 Height 5 ft 2 in Weight 155 lb BMI 28.3 Intake Visit Reasons: fracture of the left 5th Intake Note: Divine is an 85 year old female who presents today as a new patient for an evaluation of her left 5th toe fracture. Patient reports the incident occurred when a grocery cart hit the side of her foot and after 2 weeks the pain intensified. Pain islocated on the lateral aspect of her foot. She was seen on 07/24/25 at [facility] where X rays where taken and she was advised to take Tylenol as needed and to utilize the post op shoe that was provided to her by [facility] in [place]. She has previous history of a fractured toes as well as the left ankle. Allergies acetaminophen (From Percocet) Adverse Reaction (Verified 07/29/25 10:11) Hypotension oxycodone Adverse Reaction (Verified 07/29/25 10:11) Hypotension HPI Comments Details: The patient is an 85 year old female With a past medical history as seen below presenting for evaluation of left foot pain. Her symptoms began after a grocery cart accidentally ran into the lateral aspect of her left foot. She initially noted redness and pain, which she managed with ice and rest. About two weeks after the incident, while walking, she experienced a sudden sharp pain in her foot, which she likened to having a stone in her shoe, and noted a large red jen on the area. Subsequently, she was seen by her material control associate, and two days later, by her primary doctor, as the foot was not improving. An x-ray revealed a fracture, which likely occurred at the time of the sharp pain. She was then referred to an orthopedist who, noting she had already been walking on it for 2-3 weeks, opted for a surgical shoe instead of a cast. After wearing the surgical shoe for three weeks, a follow-up with orthopedics showed slow healing. An attempt to switch to a supportive leather shoe caused significant pain, so she returned to using the surgical shoe. While the pain had been mild and intermittent, she experienced a recurrence of severe, sharp pain on [facility], similar to the initial onset the injury. This prompted a visit to the ER the next day, partly due to concerns about an upcoming trip to [place]. Currently, she rates her pain as a 4/10. Her past medical history is notable for an episode of cellulitis from an insect bite two years ago, which required a 12-day hospitalization for treatment. The patient is a retired nurse. She takes vitamin D daily. For her current foot pain, she takes Tylenol, which helps a little. She reports being unable to take stronger pain medication due to experiencing severe hypotension. she denies any other pedal concerns. [facility] Medical History (Updated 08/05/25 @ 11:01 by Araseli Bartlett DPM) Fracture of fifth metatarsal bone of left foot Left foot pain Injury of left foot Osteoarthritis Small bowel obstruction Kidney stones GERD (gastroesophageal reflux disease) Social History Alcohol intake: never Review of Systems Const Details: Review of Systems - Musculoskeletal: Reports intermittent, sharp pain in the left foot, rated 4/10, worse with pressure. All systems reviewed & are unremarkable except as noted in HPI and below Physical Exam Vital Signs: BMI result Body Mass Index 28.3 Extrem Other: LLE Focused Physical Exam: Derm: No open lesions, abrasions, or wounds noted. No clinical signs of infection noted. Skin supple and turgor WNL. Minimal ecchymosis noted. Vasc: DP/PT pulses palpable. CFT < 3 secs. Temp gradient warm to warm. Pedal hair diminished. Varicosities noted. Mild edema noted to the lateral aspect of the left foot. Neuro: Protective sensations grossly intact to light touch. MSK: Pain on palpation to the lateral aspect of the left foot along the 5th met shaft. ROM of the forefoot WNL except slightly reduced to the 5th toe. No crepitus or fluctuance noted. ROM of the hindfoot and ankle WNL. Mildly antalgic gait noted with the use of a surgical shoe. Office Procedures AMB Podiatry Dressing Details of Procedure: Applied a stockinet, cast padding, and ZIYAD bandage to the left foot with the use of a post-op shoe. 88184 - Short leg splint Procedure code (CPT) selection complete Results Reviewed Results Reviewed: Ordered left foot weightbearing 3 view xrays to be performed prior to next visit. Podiatry read of left foot x-ray ( 07/24/2025): Fifth met shaft transverse Nondisplaced fracture noted with increased bone callus formation and consolidation. Hallux valgus noted with 1st IM angle measuring approximately 15.6 degrees. Hammertoe deformities 2 through 5 noted. Left foot x-ray ( 07/24/2025): Findings: No acute fracture. Chronic/subacute fracture of the 5th metatarsal bone. First metatarsophalangeal joint prominence. No erosions. Hallux valgus. No ankle effusion. No radiopaque foreign body. IMPRESSION: Subacute/chronic fracture of the 5th metacarpal bone. Assessment & Plan Assessment & Plan (1) Injury of left foot: Code(s): S99.922A - Unspecified injury of left foot, initial encounter Category: Medical Qualifiers: Encounter type: initial encounter Qualified Code(s): S99.922A - Unspecified injury of left foot, initial encounter (2) Left foot pain: Code(s): M79.672 - Pain in left foot Category: Medical (3) Fracture of fifth metatarsal bone of left foot: Code(s): S92.352A - Displaced fracture of fifth metatarsal bone, left foot, initial encounter for closed fracture Category: Medical Qualifiers: Encounter type: initial encounter Fracture type: closed Fracture alignment: displaced Qualified Code(s): S92.352A - Displaced fracture of fifth metatarsal bone, left foot, initial encounter for closed fracture Plan Patient was informed and verbally consented to the use of an ambient scribe for clinic note documentation during this visit. I reviewed the patient's recent x-rays with her and pointed out the evidence of the healing fracture, including bone callus formation, which I explained is a positive sign. I explained that applying cast padding inside the surgical shoe will provide more cushioning, reduce direct pressure on the bone, and hopefully decrease her pain while promoting continued healing. We discussed her gait, and I recommended she focus on being partial weight-bearing to the left heel to offload the fracture site. We discussed the plan for a repeat x-ray next week, followed by a return visit to the office for reassessment to ensure the fracture is healing appropriately before her international trip. I acknowledged her history of severe hypotension with stronger pain medications and agreed that continuing with Tylenol as needed is the appropriate pain management strategy. I also confirmed that taking vitamin D is beneficial and encouraged her to continue. - applied a stockinette, cast padding, and Ziyad bandage to the left foot with the use of a surgical shoe. - Patient is to keep the dressing clean dry and intact. - Advised patient to be mostly partial weight-bearing to the left heel with reduced weightbearing in a surgical shoe. - Continue taking vitamin-D. - Continue taking Tylenol PRN for pain. - Ordered left foot xrays to be obtained prior to next visit. RTC in 1 week. Orders: Orders XR foot LT min 3V 07/29/25 M79.672 - Pain in left foot, S92.352A - Displaced fracture of fifth metatarsal bone, left foot, initial encounter for closed fracture, S99.922A - Unspecified injury of left foot, initial encounter AMB Podiatry Dressing 07/29/25 M79.672 - Pain in left foot, S92.352A - Displaced fracture of fifth metatarsal bone, left foot, initial encounter for closed fracture, S99.922A - Unspecified injury of left foot, initial encounter Medications: Discontinued cephalexin Discontinued Reason: Patient no longer taking 500 mg PO Q6H 20 caps 0RF lactulose Discontinued Reason: Patient no longer taking 20 grams (30 mL) PO BID 1,200 mL 0RF omeprazole magnesium Discontinued Reason: Patient no longer taking 20 mg PO DAILY 30 ea 0RF Coding Level of Care Code New Pt Level 4 (08706) Diagnoses Injury of left foot, initial encounter S99.922A Encounter type: initial encounter Left foot pain M79.672 Closed displaced fracture of fifth metatarsal bone of left foot, initial encounter S92.352A Encounter type: initial encounter Fracture type: closed Fracture alignment: displaced CPT Codes Podiatry Dressing - CPT: 01673 - Short leg splint ([id number]) Time Spent (min) 48
[2025-07-29 10:10] VITALS: BMI 28.3
--- OUTSIDE RECORDS SUMMARY | 2025-07-29 13:03 | XMS_ITS | Encounter Summary ---
Author Organization [facility] Address [address] [place] [address] Phone Care Team Providers Care Medical Editor Name Role Phone Radha Lee NP Primary Care Provider Kitty Liang MD, MPH Primary Care Provider + Reason for Referral * MRI/CAT Scan - Closed Specialty Diagnoses / Procedures Referred By Contac t Referred To Contact Radiology Diagnoses Radiculopathy, unspecified spinal region Procedures MRI Lumbar Spine Gustabo Kwok DO Phone: tel: fax: [email or web address] Referral ID Status Reason Start Date Expiration Date Visits Re quested Visits Authorized [id number] Closed 12/04/2023 12/03/2024 1 1 Encounter Details Date Type Department Care Team (Latest Contact Info) Description 12/04/2023 Transcribe Orders Virtual Department [address] [place] [address] Gustabo Kwok DO [address] [place] [address] [email or web address] Radiculopathy, unspecified spinal region (Primary Dx) Social [...] region documented in this encounter Care Teams Medical Editor Relationship Specialty Start Date End Date Radha Lee NP [address] [place] [address] [email or web address] PCP - General Family Medicine 02/24/22 12/26/23 Kitty Liang MD, MPH [address] [place] [address] [email or web address] PCP - General Family Medicine 12/27/23 documented as of this encounter Additional Source Comments The information contained in this document represents components of the legal health record. It is not the complete legal health record.[facility]
--- OUTSIDE RECORDS SUMMARY | 2025-07-29 13:03 | XMS_ITS | Patient Health Record ---
Author Organization [facility] Address [address] [place] [address] Care Team Providers Care Gear Room Keeper Name Role Phone Radha Lee Primary Care Provider Michael Monae Unavailable [phone] Allergies Allergen (clinical drug ingredient) Drug/Non Drug [...] Problem History of adenomatous polyp of colon (925985376) History of adenomatous polyp of colon (Z86.010) Active confirmed Problem Change in bowel habit (46254048) Change in bowel habits (R19.4) Active confirmed Problem Constipation (59950257) Constipation, unspecified constipation type (K59.00) Active confirmed Problem Generalized abdominal pain (190125091) Abdominal pain, generalized (R10.84) Active confirmed Plan Of Treatment Future Test Test Name Order Date COLONOSCOPY 10/17/2019 Insurance Providers Payer Name Payer Address Payer Phone Subscriber Number Group Number Insured Name Patient Relationship to Insured Coverage Start Date Coverage End Date MEDICARE OF [place] [address] [place] [address] [id number] NIKO OSORIO Self - patient is the insured [employer] CLAIMS [address] [place] [address] [id number] NIKO OSORIO Self - patient is the insured Medical (General) History Medical History History ICD Code Kidney stones Supraventricular tachycardia Reports neg colonoscopy [address] Babcock, but couldn't reach cecum Denies MO,DM,CVA,Lung disease,renal dise ase sciatica L-3,L-4-L-5 degenerative arthritis Colonoscopy in 09/2019 with omayra still of a single tubular adenoma. She was also noted to have some mild diverticulosis and internal hemorrhoids Surgical History Surgery Date(Month/Year)
--- OUTSIDE RECORDS SUMMARY | 2025-07-29 13:03 | XMS_ITS | Encounter Summary ---
Author Organization [facility] Address [address] [place] [address] Phone Care Team Providers Care Pit Hoist Operator Name Role Phone Radha Lee PLASTIC PRESS MOLDER Primary Care Provider Radha Lee PLASTIC PRESS MOLDER Primary Care Provider Kitty Liang MD, MPH Primary Care Provider + Encounter Details Date Type Department Care Team (Late st Contact Info) Description 04/01/2020 Procedure Pass [facility], [address] [address] Social History Tobacco Use Types Packs/Day Years [...] on filedocumented in this encounter Care Teams Pit Hoist Operator Relationship Specialty Start Date End Date Radha Lee NP [address] [place] [phone] [email or web address] PCP - General Family Medicine 02/26/19 02/23/22 Radha Lee NP [address] [place] [address] [email or web address] PCP - General Family Medicine 02/24/22 12/26/23 Kitty Liang MD, MPH [address] [place] [address] [email or web address] PCP - General Family Medicine 12/27/23 documented as of this encounter Additional Source Comments The information contained in this document represents components of the legal health record. It is not the complete legal health record.[facility]
--- OUTSIDE RECORDS SUMMARY | 2025-07-29 13:03 | XMS_ITS | Encounter Summary ---
Author Organization [facility] Address [address] [place] [address] Phone Care Team Providers Care Sweet Pickled Fruit Maker Name Role Phone Radha Lee NP Primary Care Provider Kitty Liang MD, MPH Primary Care Provider + Encounter Details Date Type Department Care Team (Late st Contact Info) Description 12/04/2023 Procedure Pass [facility], [address] [phone] Social History Tobacco Use Types Packs/Day Years [...] on filedocumented in this encounter Care Teams Sweet Pickled Fruit Maker Relationship Specialty Start Date End Date Radha Lee HOLISTIC NUTRITIONIST [address] [place] [address] [email or web address] PCP - General Family Medicine 02/24/22 12/26/23 Kitty Liang MD, MPH [address] [place] [address] [email or web address] PCP - General Family Medicine 12/27/23 documented as of this encounter Additional Source Comments The information contained in this document represents components of the legal health record. It is not the complete legal health record.[facility]
--- OUTSIDE RECORDS SUMMARY | 2025-07-29 13:03 | XMS_ITS | Clinical Summary ---
Author Organization [facility] Address [address] [address] Phone Care Team Providers Care Beauty Therapist Name Role Phone Kitty Liang MD, MPH Primary Care Provider + Allergies Active Allergy Reactions Criticality Noted Date Comments Adhesive Tape-Silicones Rash Low 03/20/2019 Paper tape Duloxetine Dizziness 04/12/2019 fatigue Flu Vaccine [id number](6mos Up) Fever 09/10 Triclosan Rash Low 03/20/2019 [...] injection activity was discussed with the patient. [facility] # [id number] [facility] # [id number] Lot # [id number] Exp. 08/21 Patient will [...] Description 06/30/2025 8:00 AM EST Office Visit [facility] [address] [place] [place] [address] Kia Mosquera PA-C Closed nondisplaced fracture of fifth metatarsal bone of left foot with routine healing, subsequent encounter (Primary Dx) 06/30/2025 7:50 AM EST - 06/30/2025 11:59 PM EST Hospital Encounter [address] [address] Kia Mosquera PA-C Discharge Disposition: Home or Self Care 05/26/2025 12:40 PM EDT Office Visit [facility] [address] [place] [phone] Ludwig Javier PA-C Closed nondisplaced fracture of fifth metatarsal bone of left foot, initial encounter (Primary Dx) 05/26/2025 Orders Only [facility] [address] [place] [place] [address] Provider, MD Denny from Last 3 Months [...] Insurance [place] [id number] [employer] SUPPLEMENT MEDICARE PART A & B [facility] MEDEX SUPPLEMENT MEDICARE PART A & B [employer] SUPPLEMENT MEDICARE PART A & B [employer] MEDEX SUPPLEMENT MEDICARE PART A & B [employer] SUPPLEMENT MEDICARE PART A & B [employer] SUPPLEMENT MEDICARE PART A & B [facility] MEDEX SUPPLEMENT MEDICARE PART A & B [employer] SUPPLEMENT MEDICARE PART A & B [employer] SUPPLEMENT Advance Directives For more information, please contact: [phone] (9AM - 5PM [facility], Monday-Monday) * Full Code (Latest Code Status on File) Date Activated Date Inactivated Comments 03/25/2022 3:16 PM Question Answer Comments Code Status Confirmed With: PatientFamily Care Teams Beauty Therapist Relationship Specialty Start Date End Date Kitty Liang MD, MPH [address] [place] [address] [email or web address] PCP - General Family Medicine 12/27/23 Additional Source Comments The information contained in this document represents components of the legal health record. It is not the complete legal health record.[facility]
--- OUTSIDE RECORDS SUMMARY | 2025-07-29 13:03 | XMS_ITS | Encounter Summary ---
Author Organization [facility] Address [address] [place] [address] Phone Care Team Providers Care Surfboard Maker Name Role Phone Radha Lee TREAD BOOKER Primary Care Provider Radha Lee TREAD BOOKER Primary Care Provider Kitty Liang MD, MPH Primary Care Provider + Encounter Details Date Type Department Care Team (Late st Contact Info) Description 10/22/2019 Procedure Pass [facility]oscopy Admitting Dept Virtual Department [address] [place], [place] [phone] Social History Tobacco Use Types Packs/Day Years [...] on filedocumented in this encounter Care Teams Surfboard Maker Relationship Specialty Start Date End Date Radha Lee NP [address] [place] [address] [email or web address] PCP - General Family Medicine 02/26/19 02/23/22 Radha Lee NP [address] [place] [address] [email or web address] PCP - General Family Medicine 02/24/22 12/26/23 Kitty Laing MD, MPH [address] [place] [address] [email or web address] PCP - General Family Medicine 12/27/23 documented as of this encounter Additional Source Comments The information contained in this document represents components of the legal health record. It is not the complete legal health record.[facility]
--- OUTSIDE RECORDS SUMMARY | 2025-07-29 13:04 | XMS_ITS | Encounter Summary ---
Author Organization [facility] Address [address] [place] [address] [place] [address] Phone Care Team Providers Care Rivet Maker Name Role Phone Radha Lee NP Primary Care Provider Kitty Liang MD, MPH Primary Care Provider + Encounter Details Date Type Department Care Team (Late st Contact Info) Description 12/07/2023 Ancillary Orders [facility], X-Ray - Autumn [address] [place], [place] [phone] Gustabo Kwok, DO [address] [place] [address] [email or web address] Right shoulder pain, unspecified chronicity (Primary Dx) [...] chronicity documented in this encounter Care Teams Rivet Maker Relationship Specialty Start Date End Date Radha Lee, ELECTRIC BLASTING CAP ASSEMBLER [address] [place] [address] [email or web address] PCP - General Family Medicine 02/24/22 12/26/23 Kitty Liang MD, MPH [address] [place] [address] [email or web address] PCP - General Family Medicine 12/27/23 documented as of this encounter Additional Source Comments The information contained in this document represents components of the legal health record. It is not the complete legal health record.[facility]
== END 2025-07-29 10:35 | disposition home or self-care (01) ==
LOC: HO.HPODS 09:59
PROVIDERS: PCP Family Medicine; Visit Provider Student in an Organized Health Care Education/Training Program
DX: S92.352A Displaced fracture of fifth metatarsal bone, left foot, initial encounter for closed fracture (principal); S99.922A Unspecified injury of left foot, initial encounter; M79.672 Pain in left foot
CPT/HCPCS: 29540; 99204

== ENCOUNTER → 2025-07-29 09:59 | Outpatient (BNVA) | payer MEDICARE, SELFPAY | PROVIDERS: PCP Family Medicine; Visit Provider Student in an Organized Health Care Education/Training Program | DX: S92.352A Displaced fracture of fifth metatarsal bone, left foot, initial encounter for closed fracture (principal); W22.8XXA Striking against or struck by other objects, initial encounter; Y92.9 Unspecified place or not applicable; Y93.9 Activity, unspecified | CPT/HCPCS: 29540; 99202 ==